=== PATIENT | male | born 1985 | race Caucasian/White ===

== ENCOUNTER 2021-06-21 21:53 | Emergency (ER) | payer SELFPAY ==
[~2021-06-21 21:53] MED LIST: AUGMENTIN 500-1 EACH PO; LODINE400 MG PO; PERIDEX15 ML SSP
[2021-06-22 00:39] LABS: BASOPHIL 0.4 % (0-2); EOSINOPHIL 1.2 % (0-5); HGB 17.3 g/dl (13.2-18.0); LYMPHOCYTE 23.7 % (15-48); MCH 30.7 pg (25.0-31.0); MCHC 34.6 g/dL (32.0-36.0); MCV 88.8 fL (78.0-100.0); MONOCYTE 6.5 % (0-12); MPV 11.9 fL (6.0-9.5); NEUTROPHIL 67.8 % (41-80); NRBC 0; PLT 223 K/uL (150-400); RBC 5.63 M/uL (4.70-6.00); RDW 13.2 % (11.5-14.0); WBC 12.2 K/uL (4.0-10.5)
[2021-06-22 01:00] LABS: BUN/CREAT RATIO (CALC) 13.5 RATIO; CREATININE 1.04 mg/dL (0.67-1.17); POTASSIUM 3.7 mmol/L (3.5-5.1)
[2021-06-22] MEDS ORDERED: RIZATRIPTAN10 M1 PO (02:52)
[2021-06-22] MEDS ORDERED: NAPROXEN500 MG PO (02:52)
== END 2021-06-22 02:55 | disposition home or self-care (01) ==
LOC: FER 21:53
PROVIDERS: Internal Medicine
DX: G43.909 Migraine, unspecified, not intractable, without status migrainosus (principal); F17.210 Nicotine dependence, cigarettes, uncomplicated; Z88.5 Allergy status to narcotic agent
CPT/HCPCS: 36415; 70450; 80048; 85025; 96372; J1885; J3030